=== PATIENT | male | born 1985 | race Caucasian/White ===

== ENCOUNTER 2020-12-07 13:02 | Outpatient (CLI) | payer BC | END 2020-12-07 13:03 | disposition home or self-care (01) | LOC: ULT 13:02 | DX: N50.812 Left testicular pain (principal); N50.811 Right testicular pain; N50.89 Other specified disorders of the male genital organs | CPT/HCPCS: 76870; 93976 ==

== ENCOUNTER 2024-01-15 14:03 | Outpatient (CLI) | payer OTHER | END 2024-01-15 14:04 | disposition home or self-care (01) | LOC: BICCT 14:03 | PROVIDERS: ATTEND Family Medicine Sports Medicine | DX: Z00.00 Encounter for general adult medical examination without abnormal findings (principal) | CPT/HCPCS: 75571 ==